=== PATIENT | male | born 1955 | race Caucasian/White ===

== ENCOUNTER → 2016-04-22 | Outpatient (CLI) | payer MEDICARE, MEDICAID ==
[~2016-04-22] MED LIST: ALLOPURINOL100 MG PO; ALPRAZOLAM1 MG PO; AMLO5TAB PO; ASPIRIN 81MG TA81 MG PO; CALCITRIOL 00.25 MCG PO; COLCHICINE0.6 M4 PO; COLCHICINE0.6 MG PO; CRESTOR10 MG PO; DEMADEX20 MG PO; DOCUSATE SODIU100 MG PO; ELIQUIS5 MG PO; FERROUS SULFAT325 M2 PO; FLONASE 50 MCG16 GM; GABAPENTIN 400400 MG PO; HYTRIN5 MG PO; IMDUR 30MG. TAB30 MG PO; IMDUR 60MG. TAB60 MG PO; JANUVIA50 MG PO; KLOR-CON 1010 ME1 PO; LEXAPRO 20 MG T20 MG PO; LOSARTAN POTAS100 MG PO; MECLIZINE HYD12.5 MG PO; MECLIZINE12.5 MG PO; METOPROLOL25 MG PO; NEXIUM40 MG PO; NITROSTAT0.4 MG SL; NOVOLIN 70/30 710 ML SC; PERCOCET 10 MG1 EACH PO; PERCOCET 325 MG1 TA3 PO; PERCOCET 325 MG1 TA4 PO; PERCOCET 5/3251 EACH PO; PLAVIX75 MG PO; POTASSIUM CHLO10 ME3 PO; POTASSIUM CHLO20 ME2 PO; PRADAXA150 MG PO; PRADAXA75 M1 PO; RYTHMOL PO; RYTHMOL150 M1 PO; SULFAMETHOXAZOL1 TA6 PO; TERAZOSIN HCL2 MG PO; TORSEMIDE 20MG20 MG PO; TRICOR145 M1 PO; VITAMIN D5000 I2 PO; VOLTAREN GEL1% TP; XANAX 1MG TABLET1 MG PO; XARELTO15 MG PO; ZITHROMAX Z-PA250 M1 PO; ZOFRAN ODT4 MG PO
[2016-04-22 13:11] LABS: HEMOGLOBIN 12.3 g/dL (14.1-18.0); LYMPH # 2.6 K/mm3 (0.7-4.5); LYMPH % 28.6 % (10-50)
[2016-04-22 15:11] LABS: BUN 20 mg/dL (7-18)
[2016-04-22 15:13] LABS: GFR (ESTIMATED) 34 ML/MIN (>60)
== END ==
LOC: LAB 12:39
PROVIDERS: Internal Medicine
DX: E11.42 Type 2 diabetes mellitus with diabetic polyneuropathy (principal); E11.59 Type 2 diabetes mellitus with other circulatory complications; I25.119 Atherosclerotic heart disease of native coronary artery with unspecified angina pectoris; I10 Essential (primary) hypertension; E78.5 Hyperlipidemia, unspecified; N18.3 Chronic kidney disease, stage 3 (moderate); M10.9 Gout, unspecified

== ENCOUNTER → 2016-05-13 | Outpatient (CLI) | payer MEDICARE, MEDICAID ==
[2016-05-13 16:28] LABS: BUN 66 mg/dL (7-18); GFR (ESTIMATED) 17 ML/MIN (>60)
== END ==
LOC: LAB 15:05
PROVIDERS: Internal Medicine
DX: M10.342 Gout due to renal impairment, left hand (principal); I50.32 Chronic diastolic (congestive) heart failure; E11.42 Type 2 diabetes mellitus with diabetic polyneuropathy